=== PATIENT | male | born 1990 | race Caucasian/White ===

== ENCOUNTER 2022-11-20 13:34 | Emergency (ER) | payer OTHER ==
[~2022-11-20] VITALS: Ht 172.7 cm; Wt 63.6 kg
[2022-11-20 13:36] VITALS: BP 140/80
[2022-11-20] MEDS ORDERED: BOOSTRIX/ADACEL VACCINE (DIPHTH/PERTUSS/ACELL/TETANUS) 0.5ML SYR IM.IMMUN ONE (16:40)
[2022-11-20] MEDS ORDERED: LIDOCAINE 1% MDV 20ML VIAL SC ONE (16:40)
[2022-11-20] MEDS ORDERED: NEOSPORIN OINT 0.9 GM PKT TOP ONE (16:45)
[2022-11-20] MEDS ORDERED: CEPH500C PO (17:32)
== END 2022-11-20 17:41 | disposition home or self-care (01) ==
LOC: M ED 13:34
DX: S61.411A Laceration without foreign body of right hand, initial encounter (principal); W26.8XXA Contact with other sharp object(s), not elsewhere classified, initial encounter; Y92.59 Other trade areas as the place of occurrence of the external cause; Z88.8 Allergy status to other drugs, medicaments and biological substances; Z88.1 Allergy status to other antibiotic agents